=== PATIENT | male | born 1925 | race Caucasian/White ===

== ENCOUNTER 2016-12-16 17:43 | Inpatient (IN) | payer MEDICARE, OTHER ==
[~2016-12-16] VITALS: Ht 167.6 cm; Wt 114.0 kg
--- NOTE | ~2016-12-16 | WND ---
ADMIT: 12/16/2016 RM/LOC: 532 [facility] MR#: [id number] [address] [address] JUDY VALDEZ [address] [place] [address] Wound Care Clinic SEX: M AGE: 89 : 1925 DATE OF VISIT: 12/17/2016 TIME IN: 11:20. TIME OUT: 11:30. REASON FOR VISIT: Evaluation and treatment of right perez wound and left buttock ulceration. This is a request for wound care from Dr. Baig. HISTORY OF PRESENT ILLNESS: This is an 89-year-old male, who was seen by Wound Care in 2015, for evaluation and treatment of right buttock abscess. On 07/30/2016, he was noted to have a 10 cm buttock abscess on the right. Most recently, he was admitted to [facility] on 12/16/2016. He had presented 3 different times to outside providers after he sustained a fall at the end of November 2016. He had x-rays of knees that were initially negative and ultimately got x-rays of the hips and found to have a left femoral neck fracture and possible pelvic fracture. He was admitted to [facility] for further evaluation and care. He was seen by Dr. Gonzalez, who will be taking him to surgery for repair of a left hip fracture. PAST MEDICAL HISTORY: Obtained from family members in the room as well as previous records. COPD; hypertension; BPH; hyperlipidemia; history of MRSA on a hip wound; diabetes; history of diastolic CHF; history of adenocarcinoma, status post resection in 2012; history of diabetes. ALLERGIES: No known medication allergies. CURRENT MEDICATIONS: Per the MAR, include: 1. Flomax. 2. Micro-K. 3. Senokot. 4. Tenormin. 5. Zocor. 6. DuoNeb. 7. NovoLog. 8. Polysporin. 9. Rocephin. P.r.n. medications: 1. Colace. 2. Glutose. 3. Hydrocodone/acetaminophen. 4. Maalox. 5. Milk of magnesia. 6. Tylenol. 7. Glucagon. 8. Dulcolax. 9. Tylenol suppository. 10.D50. 11.D5NS. 12.Morphine. ADMIT: 12/16/2016 RM/LOC: 532 [facility] MR#: [id number] [address] [address] ADINAJUDY THOMPSON Elena [address] [place] [address] Wound Care Clinic SEX: M AGE: 89 : 1925 13.Reglan. 14.Zofran. FAMILY HISTORY: Significant for cancer. SOCIAL HISTORY: 11th grade education. Smoked 1 to 2 packs of cigarettes per day for over 30 years. He quit over 30 years ago. 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 Lives in [place]. . He lives with his daughter. REVIEW OF SYSTEMS: Unable to obtain much information because of his difficulty hearing and his cognitive status, but he denies any discomfort to his bottom. He does have left hip discomfort. PHYSICAL EXAMINATION: Focused exam to right anterior perez shows an area that measures 7 cm x 5 cm that is slightly erythematous. Initially, in the center was an opening that measures 1.5 cm x 2 cm with a depth of 0.2 cm that was covered 100% with yellowish sloughy material. After removal, the wound base was bright red moist wound base. He does have a small crust adjacent to this that measured 0.5 cm x 0.5 cm, dark brown noted. No surrounding erythema or induration. Posterior tibialis is 1+, dorsalis pedis is 2+. Focused exam to the left lateral hip shows 2 areas of purplish yellowish discoloration; one that measures 3.5 cm x 5 cm and the other 5 cm x 5 cm. Focused exam to the sacral, coccyx, and buttocks area shows a small opening on the left buttock that measures 0.4 x 0.2 with a depth of 0.2 cm. It does have a pink moist wound base. Family members report previously noted bloody drainage, but none noted currently. No surrounding erythema or induration. ASSESSMENT: Healing stage III pressure ulcer, injury to left buttock, abrasion to right perez, and bruising to left hip. ADMIT: 12/16/2016 RM/LOC: 532 [facility] MR#: [id number] [facility] [address] [address] [place] [address] Wound Care Clinic SEX: M AGE: 89 : 1925 TREATMENT PLAN: We will continue with the low air loss mattress overlay; chair air cushion when he is up; heels floated off all surfaces; position changes every 2 hours; Aloe Marcus to the sacral, coccyx, buttocks areas four times per day and as needed for stooling. We will continue with the current treatment plan ordered by his primary care provider for the anterior perez wound. After removing the dressing, the area was rinsed well with normal saline and was able to remove all of the sloughy material leaving the red moist wound base. We will continue with Polysporin, Telfa, and Coban daily to the wound. Thank you for this referral, and Wound will continue to follow while he is an inpatient. Sammi Kumar APRN/ mani JOB #: [id number] CC: Saúl Baig, Attending Physician Saúl Baig, Family Physician
--- NOTE | ~2016-12-16 | CO ---
ADMIT: 12/16/2016 RM/LOC: 532 [facility] MR#: [id number] 2620 [facility] [address] [place] [phone] JUDY VALDEZ [address] [place] [address] Consultation SEX: M AGE: 89 : 1925 DATE OF CONSULTATION: 12/16/2016 ATTENDING PHYSICIAN: Saúl Baig CONSULTING PHYSICIAN: Subhash Gonzalez MD CHIEF COMPLAINT: Left hip fracture. HISTORY OF PRESENT ILLNESS: This is an 89-year-old male, he has had onset of pain in his left knee. It was fairly severe after a fall a week ago. He went to ER, had x-rays of his knee that were negative. He continued to have difficulty, unable to ambulate with a lot of pain, went back to the ER today in [place] and was found on x-ray of the hip to have a left femoral neck fracture. He was transferred here for definitive care. He does have dementia. REVIEW OF SYMPTOMS: Otherwise negative. PAST MEDICAL HISTORY: He has dementia, hypercholesterol, BPH, CVA, lung cancer, history of cholecystectomy, lobectomy on the right, hypertension, and diabetes. OBJECTIVE: GENERAL: He is awake and alert, not well oriented. He although verbal, in no acute distress. EXTREMITIES: He land on his right side as he laid down on his left wrist, straighten the leg. He has sensation intact to light touch throughout the left foot. Positive EHL, FHL, brisk capillary refill. SKIN: Intact over the left hip. DIAGNOSTIC DATA: X-ray shows left femoral neck fracture. ASSESSMENT: An 89-year-old with left femoral neck fracture. PLAN: Will have n.p.o. at midnight and then, we will plan to do a left hip bipolar hemiarthroplasty tomorrow having admitted to Medical Service for preoperative clearance. Subhash Gonzalez MD/ modsimone JOB #: [id number] CC: Saúl Baig, Attending Physician Saúl Baig, Family Physician
[~2016-12-16 17:43] MED LIST: ASA CHILDREN'S81 MG PO; DELTASONE DPS20 MG PO; FLOMAX DPS0.4 MG PO; LASIX DPS20 MG PO; OMEPRAZOLE20 MG PO; POTASSIUM CHLO10 MEQ PO; PRESERVISION A1 EAC1 PO; TENORMIN-DPS25 MG PO; TYLENOL DPS325 MG PO; VIBRAMYCIN-DPS100 M1 PO; ZOCOR DPS40 MG PO
--- NOTE | 2016-12-20 14:19 | HP ---
ADMIT: 12/16/2016 RM/LOC: 532 [facility] MR#: [id number] 26[address] [facility] [address] [place], [place] [address] JUDY VALDEZ [address] [place] [address] History and Physical SEX: M AGE: 89 : 1925 DATE OF SERVICE: CHIEF COMPLAINT: Left leg pain. HISTORY OF PRESENT ILLNESS: This is an 89-year-old gentleman, he has history of dementia and also has history of lung cancer, status post resection and underlying COPD. Apparently, he presented 3 different times to outside providers after a fall he sustained. X-rays of the knees initially were negative and ultimately, finally, got x-rays of the hips and found left femoral neck fracture, also possible pelvic fracture on that x-ray as well. He denies any specific complaints for me at this time. In fact, he is fairly nonverbal even to direct questions. He normally lives at home with family. They are here to provide his history. They are notably perturbed about this diagnosis being missed or not caught initially. PAST MEDICAL HISTORY: Includes COPD; hypertension; BPH; hyperlipidemia; history of MRSA on a hip wound; diabetes; history of diastolic CHF; history of adenocarcinoma, status post resection in 2012. Does have a history of diabetes per the chart as well. MEDICATIONS: 1. Tamsulosin 0.4 mg daily. 2. Potassium 10 mEq daily. 3. Simvastatin 40 mg daily. 4. Omeprazole 20 mg b.i.d. 5. Furosemide 20 mg daily. 6. Atenolol 25 mg daily. 7. Aspirin 81 mg daily. 8. DuoNeb t.i.d. p.r.n. 9. PreserVision AREDS 2 one b.i.d. 10.Acetaminophen 650 mg two tabs every 4 hours as needed for pain. SOCIAL HISTORY: The patient is a current nonsmoker and nondrinker. Lives with family. FAMILY HISTORY: Reviewed, but noncontributory. REVIEW OF SYSTEMS: Other review of systemsunobtainable due to the patient's underlying dementia and unwilling and non-communication right now. PHYSICAL EXAMINATION: VITAL SIGNS: Temperature 98.9, pulse 67, respirations 16, blood pressure 114/63, oxygen saturation 93% on 1 L oxygen nasal cannula. GENERAL: This is an elderly appearing 89-year-old gentleman, in no apparent distress. HEENT: Pupils are equal, round, and reactive to light and accommodation. His extraocular muscles are intact. His throat is clear. NECK: Supple. HEART: Regular rate and rhythm. LUNGS: Have diffuse rhonchi and expiratory wheezes bilaterally. ADMIT: 12/16/2016 RM/LOC: 532 [facility] MR#: [id number] [address] [address] [place] [place] [address] History and Physical SEX: M AGE: 89 : 1925 ABDOMEN: Soft, without any evidence of tenderness. EXTREMITIES: He has 1+ edema to bilateral lower extremities. Right perez has a wound on it with abrasion wound. MENTAL STATUS: He has dementia, not really answer questions. He can move all extremities. Lower extremities, he does not move very much though. LABORATORY AND X-RAY DATA: X-ray reviewed showed a left femoral neck fracture. EKG shows sinus rhythm, kind of low voltage, some flat T-waves in inferior leads. ASSESSMENT: 1. Left femoral neck fracture. 2. Chronic obstructive pulmonary disease. 3. Dementia. 4. Hypertension. 5. Benign prostatic hyperplasia. 6. History of Methicillin-resistant Staphylococcus aureus. PLAN: We will get some labs, I do not see any, I do not know if any were done at outside. We will also check urine, as a cause of maybe a fall . We will do CBC, CMP, TSH, CK, troponin, A1c. We will do some wound care on his abrasions and routine postop care. Right now, we will do some Lovenox for postop VTE prophylaxis. Saúl Baig MD/ mani JOB #: [id number] CC: Saúl Baig, Attending Physician Saúl Baig, Family Physician
--- NOTE | 2016-12-24 06:50 | DS ---
ADMIT: 12/16/2016 RM/LOC: 532 [facility] MR#: [id number] [address] [address] JUDY VALDEZ [address] [place] [address] Discharge Summary SEX: M AGE: 89 : 1925 ADMISSION DATE: 12/16/2016 DISCHARGE DATE: 12/20/2016 FINAL DIAGNOSES: 1. Left femoral neck fracture. 2. Chronic interstitial lung disease. 3. COPD (chronic obstructive pulmonary disease). 4. Dementia. 5. Hypertension. 6. BPH (benign prostatic hypertrophy). 7. History of MRSA (methicillin-resistant Staphylococcus aureus). REASON FOR ADMISSION: This is an 89-year-old gentleman who has a history of dementia, who presented with left leg pain. Apparently, he had presented to outside facility and ultimately found a left femoral neck fracture. He was sent here for definitive management. He underwent a surgery that was essentially a hip replacement surgery. He had a CT scan of his chest showing interstitial fibrotic changes. He was continued on rehabilitation afterwards and continued on some anticoagulation for DVT prophylaxis. By the day of discharge, he was doing fine. He had an outside facility skilled care waiting to accept him, and so this was set up for him to be discharged there, and this was done without difficulty. On the day of discharge, hemoglobin was 11.0. Saúl Baig MD/ rachel JOB #: [id number] CC: Saúl Baig MD, Attending Physician Salú Baig MD, Family Physician
--- NOTE | 2016-12-25 10:55 | OR ---
ADMIT: 12/16/2016 RM/LOC: 532 [facility] MR#: [id number] 2620 [facility] [address] [place] [address] JUDY VALDEZ [address] [place] [address] Operative/Delivery Room Report SEX: M AGE: 89 : 1925 SURGERY DATE: 12/17/2016 SURGEON: Subhash Gonzalez MD CHIEF COMPLAINT: Left femoral neck fracture. HISTORY: An 89-year-old male, he had fallen about a week ago. Complained of knee pain. Went and had x-rays done of his knee that were found to be negative so he went home. He has kind of been unable to walk, having a lot of pain at his facility and just a lot of difficulty with getting around. He went back to the ER again, had x-rays of his hip, was found to have a left femoral neck fracture. Sent here for definitive management. He was admitted yesterday to the medicine service. Had preoperative clearance. He has advanced dementia. Discussed treatment options with the family including nonoperative treatment versus hemiarthroplasty, total arthroplasty. I had recommended hemiarthroplasty, and they agreed to go ahead and do that, and so now he is here for that today. DESCRIPTION OF PROCEDURE: The patient was identified in the preoperative holding area. Written informed consent was confirmed, site was marked. Brought to the OR, placed supine. General anesthesia was induced. He was then placed in a lateral decubitus position with all bony prominences well padded and the left up. Prepped and draped in the usual sterile fashion. A time-out was performed. Preoperative antibiotics were confirmed. Made an incision about 5 cm in length kind of centered over the tip of the trochanter. Went down through skin and subcutaneous tissue, obtained hemostasis. Cleared off the IT band, incised through the IT band. Cleared off the bursa to identify the abductors and vastus. Took a flap of the anterior 3rd of the vastus, the abductor medius along with the minimus and the capsule in one continuous flap. Exposed the fractured femoral neck. Got down and was able to identify the head. Put a corkscrew in that and got that with a corkscrew and a skid. There was a couple of bony fragments within the acetabulum, I got those out, irrigated and then exposed the proximal femur. Revised my cut and then removed the excess bone again. Then used a Quixey cutter and then kind of the [employer] broach to lateralize and then started with a zero and sequentially rasping up to a 6. This had a nice snug fit and no toggle, and so I irrigated again after taking that out. We measured a 49 on the head. After irrigating copiously with normal saline, we placed the final implant, a ADMIT: 12/16/2016 RM/LOC: 532 [facility] MR#: [id number] [address] [place] [id number] [facility] [place] [address] Operative/Delivery Room Report SEX: M AGE: 89 : 1925 6 Tri-Lock stem with a 1-1/2 neck and a 49 bipolar head and then relocated the head. This had a nice snug fit once it went in and then irrigated one more time and then closed with a #5 Tycron with a pursestring suture for the capsule minimus and medius and through a bone tunnel in the trochanter, and then #1 Vicryl for the vastus layer, #1 Vicryl for the IT band, and for the deep subcutaneous layer, a 2-0 subcu and a 4-0 Monocryl for the skin with the perineal glue dressing over the incision. We then moved into his hospital bed. He was placed into an abduction pillow, extubated, and brought to the postoperative care unit in good condition. No complications postoperatively. He will be weight bear as tolerated in an abduction pillow for the next about 24-48 hours and then continued medical management including DVT prophylaxis per the medical team. Subhash Gonzalez MD/ rachel JOB #: [id number] CC: Saúl Baig, Attending Physician Saúl Baig, Family Physician
[2016-12-28] MEDS ORDERED: LANTUS100 UNITS/ SQ (18:30)
[2016-12-28] MEDS ORDERED: ECOTRIN81 MG PO (18:30)
[2016-12-28] MEDS ORDERED: FLOMAX DPS0.4 MG PO (18:31)
[2016-12-28] MEDS ORDERED: LASIX DPS20 MG PO (18:31)
[2016-12-28] MEDS ORDERED: DELTASONE DPS10 MG PO (18:31)
[2016-12-28] MEDS ORDERED: MICRO-K DPS10 MEQ PO (18:31)
[2016-12-28] MEDS ORDERED: PRESERVISION A1 EAC2 PO (18:32)
[2016-12-28] MEDS ORDERED: SENOKOT S1 TAB PO (18:32)
[2016-12-28] MEDS ORDERED: TENORMIN-DPS25 MG PO (18:32)
[2016-12-28] MEDS ORDERED: DUONEB DPS3 ML IH (18:32)
[2016-12-28] MEDS ORDERED: ZOCOR DPS40 MG PO (18:32)
[2016-12-28] MEDS ORDERED: NOVOLIN R,100 UNITS/ SQ (18:33)
[2016-12-28] MEDS ORDERED: POLYSPORIN OINT15 GM TP (18:34)
[2016-12-28] MEDS ORDERED: COLACE CLEAR50 MG PO (18:34)
[2016-12-28] MEDS ORDERED: CALMOSEPTINE113 GM TP (18:34)
[2016-12-28] MEDS ORDERED: MAALOX DPS30 ML PO (18:35)
[2016-12-28] MEDS ORDERED: MILK OF MAGNESI10 ML PO (18:35)
[2016-12-28] MEDS ORDERED: NORCO 5-325 TA1 EACH PO (18:35)
[2016-12-28] MEDS ORDERED: GLUTOSE 1537.5 GM PO (18:35)
[2016-12-28] MEDS ORDERED: TYLENOL DPS325 MG PO (18:36)
--- NOTE | 2017-01-23 18:50 | ER ---
ADMIT: 12/16/2016 RM/LOC: 532 [facility] MR#: [id number] [address] [place] [address] Emergency Room Report SEX: M AGE: 89 : 1925 DATE: 12/16/2016 ADDENDUM: Regular physician is Dr. Daniel. This patient comes to the ER because he has pain in his left hip. He fell a week ago and has had a hip fracture. He was sent to our ER to see the surgeon Dr. Gonzalez. PHYSICAL EXAMINATION: On physical exam, he does have pain in his left hip. It is short and rotated. He is alert but he is confused. According to his daughter at bedside, he is normally confused. X-ray showed a displaced femoral neck fracture. I did speak with Dr. Gonzalez, he came into the ER to examine the patient. I also spoke with Dr. Baig, who is city call, and he admitted the patient. Please see my T sheet and their dictation for further treatment. MIKE Hill / Shahriar Perez MD / mani JOB #: [id number] CC: Saúl Baig MD, Attending Physician Saúl Baig MD, Family Physician
== END 2016-12-20 10:27 | DRG 469 ==
LOC: ER 17:43 → 5MS 18:55
PROVIDERS: ADMIT Internal Medicine
PROC: 0SRS0JA Replacement of Left Hip Joint, Femoral Surface with Synthetic Substitute, Uncemented, Open Approach (ICD-10-PCS; principal; 2016-12-17)
DX: S72.002A Fracture of unspecified part of neck of left femur, initial encounter for closed fracture (principal); L89.323 Pressure ulcer of left buttock, stage 3; J84.9 Interstitial pulmonary disease, unspecified; J96.11 Chronic respiratory failure with hypoxia; I11.0 Hypertensive heart disease with heart failure; F03.90 Unspecified dementia, unspecified severity, without behavioral disturbance, psychotic disturbance, mood disturbance, and anxiety; I50.32 Chronic diastolic (congestive) heart failure; J44.9 Chronic obstructive pulmonary disease, unspecified; S80.811A Abrasion, right lower leg, initial encounter; N40.0 Benign prostatic hyperplasia without lower urinary tract symptoms; E78.00 Pure hypercholesterolemia, unspecified; E78.5 Hyperlipidemia, unspecified; W19.XXXA Unspecified fall, initial encounter; E11.9 Type 2 diabetes mellitus without complications; Z79.82 Long term (current) use of aspirin; Z85.118 Personal history of other malignant neoplasm of bronchus and lung; Z86.14 Personal history of Methicillin resistant Staphylococcus aureus infection; Z86.73 Personal history of transient ischemic attack (TIA), and cerebral infarction without residual deficits

== ENCOUNTER 2016-12-21 22:12 | Inpatient (IN) | payer MEDICARE, OTHER ==
[~2016-12-21] VITALS: Ht 167.6 cm; Wt 95.0 kg
--- NOTE | 2016-12-22 06:25 | ER ---
ADMIT: 12/21/2016 RM/LOC: 402 [facility] MR#: [id number] [address] [address] [place] [address] Emergency Room Report SEX: M AGE: 89 : 1925 DATE: 12/21/2016 CHIEF COMPLAINT: Cough. HISTORY OF PRESENT ILLNESS: The patient is an 89-year-old male, resident of detention in [place] transferred by [facility], with gradual onset of fevers, chills, nausea, vomiting, cough today. The patient was hospitalized December 16 through after sustaining left femoral neck fracture, underwent left total hip arthroplasty. He has been convalescing at detention since. The patient has profound dementia, unable to give reliable history. Review of medical record from detention shows no evidence of anticoagulants or antibiotics. PAST MEDICAL HISTORY: ILLNESSES: CHF, type 2 diabetes, hypertension, COPD, hyperlipidemia, previous MRSA, wound infection, non-small cell lung carcinoma, BPH, GERD, and dementia. OPERATIONS: Cholecystectomy, right lower lobectomy, left femoral neck fracture ORIF. ALLERGIES: NONE. MEDICATIONS: Please see detention MAR. SOCIAL HISTORY: assisted resident. Nonsmoker, nondrinker. No illicit drugs. FAMILY HISTORY: Negative per chart review. REVIEW OF SYSTEMS: Unreliable due to dementia. PHYSICAL EXAMINATION: VITAL SIGNS: Temperature 99.7, pulse 108, respirations 26, BP 115/65, SaO2 of 92% on room air. Weight 101 kilos. GENERAL: Lethargic, will answer questions yes/no. HEENT: No evidence of injury, epistaxis, rhinorrhea, or otorrhea. NECK: Supple without lymphadenopathy or thyromegaly. CHEST: Breath sounds equal, diminished with expiratory wheeze, rhonchi noted throughout. HEART: Tachycardic, regular with occasional extrasystole. No murmur, gallop. Trace ankle edema noted. EXTREMITIES: Left hip wound healing well without evidence of inflammation or discharge. Homans sign negative. NEURO: EOMI. PERRLA. No focal deficits. Gait not assessed. MENTAL STATUS: Obtunded, but will respond to verbal stimuli, answer. MEDICAL DECISION MAKING: The patient was given IV fluids, Zofran 8 mg IV push x2, followed by Reglan 5 mg IV push, vancomycin, Zosyn. CTA chest confirms pneumonia, no evidence PE. Abdomen and pelvis shows 4.5 cm infrarenal abdominal aortic aneurysm without leak. WBC 15.1 with normal differential, ADMIT: 12/21/2016 RM/LOC: 402 [facility] MR#: [id number] [facility] [address] [address] [place] [address] Emergency Room Report SEX: M AGE: 89 : 1925 hemoglobin 11.8, bands 14.2, lactic 1.3, glucose 191, troponin less than 0.015, CRP 23. ABGs 6 L; pH of 7.46, pCO2 of 33.8, PO2 of 76, procalcitonin 0.15. UA; 1+ ketones, less than 1 wbc, 1 rbc. EKG shows ectopic atrial tachycardia with PVCs, unchanged from 12/18/2016. Chest x-ray confirms right lower lobe infiltrate. Abdomen series shows dilated isolated bowel. Discussed findings with Dr. Arellano, who agreed and gave orders to nursing staff. DIAGNOSES: 1. Healthcare-acquired pneumonia and possible aspiration. 2. Infrarenal abdominal aortic aneurysm. 3. Recent left hip fracture with total hip arthroplasty. 4. Prior Methicillin-resistant Staphylococcus aureus hip infection, records unavailable. RECOMMENDATION: Admit inpatient PCU for Dr. Arellano. ADMISSION/DISCHARGE CONDITION: Stable. CODE STATUS: The patient is a DNR. Bud Casanova MD/ mani JOB #: [id number] CC: Terrie Arellano MD, Attending Physician Terrie Arellano MD, Family Physician MD Shahriar Alcaraz MD
[2016-12-28] MEDS ORDERED: ECOTRIN81 MG PO (18:30)
[2016-12-28] MEDS ORDERED: LANTUS100 UNITS/ SQ (18:30)
[2016-12-28] MEDS ORDERED: DELTASONE DPS10 MG PO (18:31)
[2016-12-28] MEDS ORDERED: MICRO-K DPS10 MEQ PO (18:31)
[2016-12-28] MEDS ORDERED: LASIX DPS20 MG PO (18:31)
[2016-12-28] MEDS ORDERED: FLOMAX DPS0.4 MG PO (18:31)
[2016-12-28] MEDS ORDERED: ZOCOR DPS40 MG PO (18:32)
[2016-12-28] MEDS ORDERED: SENOKOT S1 TAB PO (18:32)
[2016-12-28] MEDS ORDERED: PRESERVISION A1 EAC2 PO (18:32)
[2016-12-28] MEDS ORDERED: DUONEB DPS3 ML IH (18:32)
[2016-12-28] MEDS ORDERED: TENORMIN-DPS25 MG PO (18:32)
[2016-12-28] MEDS ORDERED: NOVOLIN R,100 UNITS/ SQ (18:33)
[2016-12-28] MEDS ORDERED: COLACE CLEAR50 MG PO (18:34)
[2016-12-28] MEDS ORDERED: POLYSPORIN OINT15 GM TP (18:34)
[2016-12-28] MEDS ORDERED: CALMOSEPTINE113 GM TP (18:34)
[2016-12-28] MEDS ORDERED: MILK OF MAGNESI10 ML PO (18:35)
[2016-12-28] MEDS ORDERED: NORCO 5-325 TA1 EACH PO (18:35)
[2016-12-28] MEDS ORDERED: MAALOX DPS30 ML PO (18:35)
[2016-12-28] MEDS ORDERED: GLUTOSE 1537.5 GM PO (18:35)
[2016-12-28] MEDS ORDERED: TYLENOL DPS325 MG PO (18:36)
--- NOTE | 2016-12-31 07:10 | DS ---
ADMIT: 12/21/2016 RM/LOC: 402 [facility] MR#: [id number] [address] [address] [place] [address] Discharge Summary SEX: M AGE: 89 : 1925 ADMISSION DATE: 12/21/2016 DISCHARGE DATE: 12/26/2016 DISCHARGE DIAGNOSES: 1. Bilateral pneumonia. 2. History of dementia. 3. History of lung cancer status post resection. 4. History of chronic obstructive pulmonary disease. 5. History of fractured hip on December 17, 2016. 6. History of hypertension. 7. Hyperlipidemia. 8. Benign prostatic hyperplasia. 9. History of MRSA in the buttocks wound. 10.History of buttocks ulcer. 11.History of adenocarcinoma of the lung status post resection in 2012. 12.History of congestive heart failure. HISTORY OF PRESENT ILLNESS: Well documented in his H and P. LABORATORY AND RADIOGRAPHIC ASSESSMENT: On admission, white count 15.1, hemoglobin of 11.8, and platelet count of 238,000. Near discharge, white blood cell count was 9.7 and hemoglobin 9.8. His urinalysis showed no acute abnormalities. Serum chemistries on admission showed a sodium of 136, potassium 4.4, BUN and creatinine 25 and 1.2, and blood sugar of 191. ABGs on admission showed a pH of 7.45, pCO2 of 33, and PO2 of 76. C-reactive protein 23. Blood culture showed no growth. Respiratory culture showed normal soni. Urine culture showed no growth. CT of pelvis showed no evidence and chest, no evidence of pulmonary embolism. Bilateral lower lobe pneumonia, most severe in the right side. Abdominal aortic aneurysm, measuring 4.4 cm. Perforation; chest x-ray followup on 12/23 showed bilateral pneumonia, slightly improved. Barium swallow performed. Chest x-ray near discharge showed mild bibasilar granular opacity, stable. EKG on admission shows atrial fibrillation with rapid ventricular rate. HOSPITAL COURSE: This elderly white gentleman, who was admitted to [facility] with increasing shortness of breath and respiratory distress. On further assessment, was found to have evidence of bilateral pneumonia. He was concerned as he has had a recent fracture of pulmonary embolism, this was ruled out. He was started on subcutaneous Lovenox. He was started on IV antibiotics and aspiration precautions. He was seen and evaluated by Speech and was started on nectar thick liquids, pureed textures, crushed pills. On 12/23, he was alert, but confused. His activity level was increased. He was given Solu-Medrol IV as he had some inspiratory and expiratory wheezes, had evidence of mild hypoglycemia, was started on low-dose sliding scale insulin. His Solu-Medrol was discontinued on 12/25. He is started on prednisone. Activity level was increased. Chest x-ray is improving. As he had hyperglycemia, which was felt to be secondary to steroids, he was initially started on Lantus insulin. He had improvement in ADMIT: 12/21/2016 RM/LOC: 402 [facility] MR#: [id number] [address] [place] [phone] [place] [address] Discharge Summary SEX: M AGE: 89 : 1925 behaviors. He subsequently was [facility] back to the [facility]. DISCHARGE MEDICATIONS: At the time of discharge, he was on aspirin 81 mg daily, prednisone 20 mg daily for 2 days, then 10 mg for 6 and then discontinue, Flomax 0.1 mg daily, Lasix 20 daily, micro K 10 mEq daily, Senokot daily, Tenormin 25 mg daily, therapeutic, multivitamin, Zocor 40 mg daily, DuoNeb breathing treatments, Lovenox 40 mg subcu was discontinued. Continue on sliding scale insulin, Accu-Cheks before meals and at bedtime. Local care to his buttocks. Numerous p.r.n. He was discharged home in stable condition. Discharge back to [facility] in stable condition on Lantus insulin 10 units at bedtime, pureed nectar thick diet. Continue PT/OT and speech therapy. Discharged in stable condition. Michelle Escalante MD/ mani JOB #: [id number] CC: Michelle Escalante MD, Attending Physician Terrie Arellano MD, Family Physician
--- NOTE | 2017-01-13 15:38 | HP ---
ADMIT: 12/21/2016 RM/LOC: 402 [facility] MR#: [id number] [address] [place] [address] History and Physical SEX: M AGE: 89 : 1925 DATE OF SERVICE: CHIEF COMPLAINT: Cough and shortness of breath. HISTORY OF PRESENT ILLNESS: Mr. August is 89-year-old man with history of dementia and lung cancer status post resection. He also has underlying COPD and was recently admitted in the hospital last week and found to have left femoral neck fracture. He was seen by Dr. Gonzalez who did left hip arthroplasty on December 17, 2016. He was just discharged on December 20, 2016, to skilled care facility. There he was noted to have increased cough associated with nausea and vomiting, hence was transferred back to the ER. In the ED, he was found to have bilateral pneumonia on CTA chest, and there was no evidence of pulmonary embolus. He was also found to have a 4.5 cm infrarenal abdominal aortic aneurysm without any leak. He had high white count and ruled in for sepsis, hence admitted to the hospital. At present, he is not able to give any detailed history. He is currently coughing blackish gleason colored sputum. PAST MEDICAL HISTORY: 1. Dementia. 2. COPD. 3. Hypertension. 4. Hyperlipidemia. 5. BPH. 6. 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 7. History of buttock ulcer. 8. Lung adenocarcinoma status post resection in 2012. 9. Diabetes. 10.CHF. SOCIAL HISTORY: Per the notes, he is a nonsmoker and does not drink alcohol. Lives in [place]. FAMILY HISTORY: Significant for cancer. REVIEW OF SYSTEMS: A 10-point review of systems unable to obtain as patient has baseline dementia, not answering all the questions. ALLERGIES: NO KNOWN DRUG ALLERGIES. OUTPATIENT MEDICATIONS: Reviewed. PHYSICAL EXAMINATION: VITAL SIGNS: Current temperature 97.9, heart rate 95, respirations 23, blood pressure 138/82, 95% on 2 L. T-max is 100.3. GENERAL: No acute distress. HEENT. Head, normocephalic and atraumatic. Extraocular movements intact. LYMPH: No palpable anterior/posterior cervical or supraclavicular lymphadenopathy. ADMIT: 12/21/2016 RM/LOC: 402 [facility] MR#: [id number] [id number] [address] [facility] [place] [address] History and Physical SEX: M AGE: 89 : 1925 CHEST: Coarse breath sounds bilaterally. CARDIOVASCULAR: S1 and S2 heard. Regular rate and rhythm. ABDOMEN: Soft, mildly distended. Active bowel sounds. Nontender. MUSCULOSKELETAL: Left hip stitches are clean, dry, and intact. SKIN: No rash noted on exposed skin. NEUROLOGIC: Awake, alert, not answering all the questions given his baseline dementia. DATA REVIEW: His white count today is 20.8, hemoglobin 11.3, and platelets of 224. CMP shows potassium of 5.2, creatinine 1.3, AST of 54, ALT 64, albumin 2.1. Cardiac enzymes are negative. CTA chest and abdominal CT scan showed no evidence of pulmonary embolus. Bilateral lower lobe pneumonia, most severe on the right side. An 4.4 cm abdominal aortic aneurysm. ASSESSMENT AND PLAN: 1. Healthcare-associated pneumonia. 2. Status post left hip arthroplasty on 12/17/2016. 3. Dementia. 4. Chronic obstructive pulmonary disease. 5. Interstitial lung disease. 6. Hypertension. 7. Stage 3 buttock ulcer. PLAN: Admit him to telemetry. We will broadly cover him with vancomycin and Zosyn for now. We will check sputum culture and sensitivity. He needs speech and swallow eval to rule out any aspiration. We will continue DuoNeb and outpatient medications. I will give him Lovenox for DVT prophylaxis. We will narrow antibiotics once culture is finalized. Terrie Arellano MD/ mani JOB #: [id number] CC: eTrrie Arellano, Attending Physician Terrie Arellano, Family Physician
== END 2016-12-26 13:45 | DRG 190 ==
LOC: ER 22:12 → 4PCU 23:53
PROVIDERS: ADMIT Internal Medicine Infectious Disease
DX: J44.0 Chronic obstructive pulmonary disease with (acute) lower respiratory infection (principal); J18.9 Pneumonia, unspecified organism; J84.9 Interstitial pulmonary disease, unspecified; I11.0 Hypertensive heart disease with heart failure; F03.90 Unspecified dementia, unspecified severity, without behavioral disturbance, psychotic disturbance, mood disturbance, and anxiety; I50.9 Heart failure, unspecified; L89.303 Pressure ulcer of unspecified buttock, stage 3; E11.65 Type 2 diabetes mellitus with hyperglycemia; I71.4 Abdominal aortic aneurysm, without rupture; E78.5 Hyperlipidemia, unspecified; S72.002D Fracture of unspecified part of neck of left femur, subsequent encounter for closed fracture with routine healing; N40.0 Benign prostatic hyperplasia without lower urinary tract symptoms; K21.9 Gastro-esophageal reflux disease without esophagitis; Z85.118 Personal history of other malignant neoplasm of bronchus and lung; Z86.14 Personal history of Methicillin resistant Staphylococcus aureus infection; Z98.890 Other specified postprocedural states; T38.0X5A Adverse effect of glucocorticoids and synthetic analogues, initial encounter